=== PATIENT | male | born 1985 | race African-American/Black ===

== ENCOUNTER 2018-06-26 22:16 | Emergency (ER) | payer OTHER ==
[2018-06-26 22:28] VITALS: BP 121/81; PULSE 74; TEMP 99.2; BMI 23.5
[2018-06-26] MEDS ORDERED: diazePAM 5 MG TABLET PO ONE (22:51)
--- NOTE | 2018-06-26 22:52 | PDOC ---
History of Present Illness - General Chief Complaint: Cold Symptoms Stated Complaint: COUGH, SOB, PAIN & WEAKNESS Time Seen by Provider: 06/26/18 22:40 - History of Present Illness Initial Comments: 06/26/18 22:50 33-year-old male with a past medical history significant for anxiety presents for evaluation of cough intermittent subjective fever at night, chills, sweats, headache, weight loss, body aches 30 days. Past History - Past Medical History Allergies/Adverse Reactions: Allergies Allergy/AdvReac Type Severity Reaction Status Date / Time No Known Allergies Allergy Verified 06/26/18 22:28 Home Medications: Ambulatory Orders NK [No Known Home Medication] 06/26/18 COPD: No - Surgical History Abdominal Surgery: Yes (HERNIA) - Suicide/Smoking/Psychosocial Hx Smoking History: Current some day smoker Number of Cigarettes Smoked Daily: 1 Information on smoking cessation initiated: No Review of Systems - Review of Systems Constitutional: Yes: Chills, Diaphoresis, Fever, Malaise, Night Sweats, Weakness , Unintentional Wgt. Loss Respiratory: Yes: Cough *Physical Exam - Vital Signs Last Vital Signs Temp Pulse Resp BP Pulse Ox 99.2 F 74 18 121/81 100 06/26/18 22:19 06/26/18 22:19 06/26/18 22:19 06/26/18 22:19 06/26/18 22:19 - Physical Exam Comments: 06/26/18 22:51 HEAD: NC/AT EYES: Conjuntiva clear Ears: Canals and TM's normal NOSE: No d/c THROAT: Moist mucous membrances, oral pharanx clear, uvula midline NECK: Supple without adenopathy CARDIAC: S1 S2 LUNGS: CTA Full and Equal breath sounds ABDOMEN: Soft NT ND MS: Full ROM in all joints without edema NEUROLOGIC: No gross sensory or motor deficits, NVID SKIN: Normal color and temperature no lesions or rashes ED Treatment Course - RADIOLOGY Radiology Studies Ordered: Category Date Time Status CHEST PA & LAT [RAD] Stat Radiology 06/26/18 22:49 Ordered Medical Decision Making - Medical Decision Making 06/26/18 22:52 I believe this patient is in need of a workup I will prescribe something for his anxiety at this point and have him transferred to the main ER laboratory work and a chest x-ray *DC/Admit/Observation/Transfer Diagnosis at time of Disposition: Cough - Referrals - Patient Instructions - Post Discharge Activity
[2018-06-26] MEDS ORDERED: diazePAM 5 MG TABLET ONE (22:53)
--- NOTE | 2018-06-26 23:26 | PDOC ---
History of Present Illness - General History Source: Patient Exam Limitations: No Limitations - History of Present Illness Initial Comments: 06/26/18 23:26 The patient is a 33 year old male with no past medical history who presents to the emergency department for evaluation of shortness of breath and cold symptoms. The patient reports being very ill 4 weeks ago with associated shortness of breath, coughing, fever, headache, and weakness. Today, the patient reports his coughing and fever have since resolved, but still has constant shortness of breath as well as dyspnea on exertion. Patient states he ran 2 miles last week, but notes it was slower than normal. He reports visiting his PCP Dr. Kathleen Stevens last week who gave him motrin for his symptoms. Patient reports taking motrin with no alleviation to his symptoms. The patient denies chest pain, headache, dizziness, fevers, chills, nausea, vomiting, and any bowel/urinary symptoms. Allergies: No known allergies. Social History: No reported alcohol, cigarette, or drug use. Surgical History: Hernia, hand. PCP: Dr. Kathleen Stevens (Not on staff) <Etta Benjamin - Last Filed: 06/26/18 23:26> <Vivian Hatfield - Last Filed: 06/27/18 02:51> - General Chief Complaint: Cold Symptoms Stated Complaint: COUGH, SOB, PAIN & WEAKNESS Time Seen by Provider: 06/26/18 22:40 Past History <Etta Benjamin - Last Filed: 06/26/18 23:26> - Past Medical History COPD: No - Surgical History Abdominal Surgery: Yes (HERNIA) - Suicide/Smoking/Psychosocial Hx Smoking History: Current some day smoker Number of Cigarettes Smoked Daily: 1 Information on smoking cessation initiated: No <Vivian Hatfield - Last Filed: 06/27/18 02:51> - Past Medical History Allergies/Adverse Reactions: Allergies Allergy/AdvReac Type Severity Reaction Status Date / Time No Known Allergies Allergy Verified 06/26/18 22:28 Home Medications: Ambulatory Orders NK [No Known Home Medication] 06/26/18 Review of Systems - Review of Systems Able to Perform ROS?: Yes Comments:: GENERAL/CONSTITUTIONAL: No fever or chills. No weakness. HEAD, EYES, EARS, NOSE AND THROAT: No change in vision. No ear pain or discharge. No sore throat. CARDIOVASCULAR: +shortness of breath. +TRUJILLO. No chest pain. RESPIRATORY: No cough, wheezing, or hemoptysis. GASTROINTESTINAL: No nausea, vomiting, diarrhea or constipation. GENITOURINARY: No dysuria, frequency, or change in urination. MUSCULOSKELETAL: No joint or muscle swelling or pain. No neck or back pain. SKIN: No rash NEUROLOGIC: No headache, vertigo, loss of consciousness, or change in strength/ sensation. ENDOCRINE: No increased thirst. No abnormal weight change. HEMATOLOGIC/LYMPHATIC: No anemia, easy bleeding, or history of blood clots. ALLERGIC/IMMUNOLOGIC: No hives or skin allergy. <Etta Benjamin - Last Filed: 06/26/18 23:26> *Physical Exam - Vital Signs Last Vital Signs Temp Pulse Resp BP Pulse Ox 99.2 F 74 18 121/81 100 06/26/18 22:19 18 22:19 18 22:19 06/26/18 22:19 06/26/18 22:19 - Physical Exam Comments: GENERAL: Awake, alert, and fully oriented, in no acute distress HEAD: No signs of trauma LUNGS: Breath sounds equal, clear to auscultation bilaterally. No wheezes, and no crackles HEART: Regular rate and rhythm, normal S1 and S2, no murmurs, rubs or gallops ABDOMEN: Soft, nontender, normoactive bowel sounds. No guarding, no rebound. No masses EXTREMITIES: Normal range of motion, no edema. No clubbing or cyanosis. No cords, erythema, or tenderness NEUROLOGICAL: Cranial nerves II through XII grossly intact. Normal speech, normal gait SKIN: Warm, Dry, normal turgor, no rashes or lesions noted. <Etta Benjamin - Last Filed: 06/26/18 23:26> - Vital Signs Last Vital Signs Temp Pulse Resp BP Pulse Ox 99.2 F 74 18 121/81 100 06/26/18 22:19 18 22:19 18 22:19 06/26/18 22:19 06/26/18 22:19 <Vivian Hatfield - Last Filed: 06/27/18 02:51> ED Treatment Course - Medications Given in the ED: ED Medications Discontinued Medications Generic Name Dose Route Start Last Admin Trade Name Freq PRN Reason Stop Dose Admin Diazepam 5 mg 06/26/18 22:51 06/26/18 22:53 Valium - PO 06/26/18 22:52 5 mg ONCE ONE Administration <Etta Benjamin - Last Filed: 06/26/18 23:26> - LABORATORY CBC & Chemistry Diagram: 06/27/18 01:43 06/27/18 01:43 - Medications Given in the ED: ED Medications Discontinued Medications Generic Name Dose Route Start Last Admin Trade Name Freq PRN Reason Stop Dose Admin Diazepam 5 mg 06/26/18 22:51 06/26/18 22:53 Valium - PO 06/26/18 22:52 5 mg ONCE ONE Administration <Vivian Hatfield - Last Filed: 06/27/18 02:51> Medical Decision Making - Medical Decision Making 06/27/18 01:29 Pt presents to the ED complaining of a one month history of shortness of breath and intermittent, non exertional chest pain. Patient has not have cough or fever for three weeks. Reports that he had fever and cough four weeks ago, and that since resolution of the fever, he has felt that "something is not right". Also complains of intermittent palpitations. States that he saw his PMD last week for the same complaints and was discharged home with motrin. He is concerned that he had PNA four weeks ago and that this has "damaged" his lungs. Patient is well appearing in the ED, speaking in complete sentences with no respiratory distress. Lungs are clear. I have explained to him that lung pathology is unlikely given the absence of exertional shorntess of breath or cough. Will check CXR. Will check labs to evaluate for other causes of shortness of breath including severe anemia. I have explained to him that although he is at low risk for cardiac disease, his symptoms may be cardiac in origin and he will need an out patient cardiac work up if labs are negative. 06/27/18 01:39 06/27/18 02:49 Labs and CXR are within normal limits. Will discharge home. <Vivian Hatfield - Last Filed: 06/27/18 02:51> *DC/Admit/Observation/Transfer - Attestations Scribe Attestion: Documentation prepared by Etta Bejnamin, acting as director medical economics for Vivian Hatfield MD. <Etta Benjamin - Last Filed: 06/26/18 23:26> - Discharge Dispostion Decision to Admit order: No <Vivian Hatfield - Last Filed: 06/27/18 02:51> Diagnosis at time of Disposition: Shortness of breath - Discharge Dispostion Disposition: HOME Condition at time of disposition: Good - Patient Instructions Printed Discharge Instructions: DI for Shortness of Breath Additional Instructions: return to the ED for worsening shortness of breath or cough, fever, severe chest pain, other new or worsening symptoms. Make sure that you follow up with your doctor--call him for follow up tomorrow.
[2018-06-27 01:48] LABS: BASO % 0.9 % (0-2.0); HEMATOCRIT 42.2 % (35.4-49); HEMOGLOBIN 15.1 GM/dL (11.7-16.9); LYMPH % 42.3 % (8-40); MCH 31.1 pg (25.7-33.7); MCHC 35.8 g/dl (32.0-35.9); MEAN CELL VOLUME 86.8 fl (80-96); MEAN PLT VOLUME 8.8 fl (7.5-11.1); MONO % 7.2 % (3.8-10.2); NEUT % 47.6 % (42.8-82.8); PLATELET COUNT 251 K/MM3 (134-434); RBC 4.87 M/mm3 (4.00-5.60); RDW 13.6 % (11.9-15.9); WHITE BLOOD COUNT 5.8 K/mm3 (4.0-10.0)
[2018-06-27 02:22] LABS: ALBUMIN 4.3 g/dl (3.4-5.0); ALK PHOS 41 U/L (45-117); ANION GAP 6 MMOL/L (8-16); BILIRUBIN,TOTAL 0.4 mg/dL (0.2-1); BLOOD UREA NITROGEN 14 mg/dL (7-18); CALCIUM 9.4 mg/dL (8.5-10.1); CHLORIDE 101 mmol/L (98-107); CO2 31 mmol/L (21-32); GLUCOSE,RANDOM 85 mg/dL (74-106); POTASSIUM 4.1 mmol/L (3.5-5.1); SGOT/AST 27 U/L (15-37); SGPT/ALT 27 U/L (13-61); SODIUM 138 mmol/L (136-145); TOT PROT 7.3 g/dl (6.4-8.2)
== END 2018-06-27 03:02 | disposition home or self-care (01) ==
LOC: JER 22:16 → JERFT 22:16 → JER 06-27 03:02
DX: R06.02 Shortness of breath (principal); F41.9 Anxiety disorder, unspecified
CPT/HCPCS: 36415; 71046-TC-FY; 80053; 85025; 86753; 99281-25

== ENCOUNTER 2019-05-19 22:51 | Emergency (ER) | payer OTHER ==
[2019-05-19 22:59] VITALS: BP 117/59; PULSE 76; TEMP 98.7; BMI 25.0
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
== END 2019-05-20 02:13 | disposition home or self-care (01) ==
LOC: JER 22:51
PROC: 2W3GX1Z Immobilization of Right Thumb using Splint (ICD-10-PCS; principal; 2019-05-19)
DX: M79.641 Pain in right hand (principal); S63.621A Sprain of interphalangeal joint of right thumb, initial encounter; V18.0XXA Pedal cycle driver injured in noncollision transport accident in nontraffic accident, initial encounter; Y92.488 Other paved roadways as the place of occurrence of the external cause; Y93.55 Activity, bike riding; Y99.8 Other external cause status
CPT/HCPCS: 73110-TC-RT-FY; 73130-TC-RT-FY; 99281-25